=== PATIENT | male | born 1975 | race Caucasian/White ===

== ENCOUNTER 2021-08-26 22:59 | Emergency (ER) | payer BC ==
[2021-08-26 23:05] VITALS: PULSE 72; BMI 30.7
[2021-08-27] MEDS ORDERED: SODIUM CHLORIDE 0.9% 500 ML INFUS.BAG IV ONE (00:53)
[2021-08-27 01:00] LABS: EOS % 1.6 % (0-4.5); HEMATOCRIT 40.5 % (35.4-49); HEMOGLOBIN 13.9 GM/dL (11.7-16.9); LYMPH % 22.8 % (8-40); MCH 30.1 pg (25.7-33.7); MCHC 34.3 g/dl (32.0-35.9); MEAN CELL VOLUME 87.8 fl (80-96); MEAN PLT VOLUME 7.3 fl (7.5-11.1); MONO % 8.7 % (3.8-10.2); NEUT % 65.9 % (42.8-82.8); PLATELET COUNT 233 10^3/uL (134-434); RBC 4.61 M/mm3 (4.00-5.60); RDW 14.1 % (11.9-15.9); WHITE BLOOD COUNT 6.1 K/mm3 (4.0-10.0)
[2021-08-27 01:18] LABS: CALCIUM 8.6 mg/dL (8.5-10.1); MAGNESIUM 2.2 mg/dL (1.8-2.4)
[2021-08-27 01:22] LABS: CREATININE 1.2 mg/dL (0.55-1.3)
[2021-08-27 01:23] LABS: BILIRUBIN,TOTAL 1.2 mg/dL (0.2-1); TOT PROT 7.6 g/dl (6.4-8.2)
[2021-08-27 03:14] VITALS: BP 142/76
== END 2021-08-27 03:14 | disposition home or self-care (01) ==
LOC: JER 22:59
DX: R19.7 Diarrhea, unspecified (principal)
CPT/HCPCS: 36415; 76705-TC; 80053; 83690; 83735; 85025; 99283-25